=== PATIENT | male | born 2005 | race African-American/Black ===

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

== ENCOUNTER 2024-10-16 09:08 | Emergency (ER) | payer OTHER ==
[2024-10-16 09:30] VITALS: BP 111/69; PULSE 84; RESP 20; TEMP 98; BMI 45.4
[2024-10-16] MEDS ORDERED: IBUPROFEN 600 MG TABLET (FP) PO ONE (09:43)
[2024-10-16] MEDS ORDERED: ACETAMINOPHEN 500 MG TABLET (FP) PO ONE (09:43)
== END 2024-10-16 10:29 | disposition home or self-care (01) ==
LOC: JERFT 09:08
DX: M25.522 Pain in left elbow (principal); M25.422 Effusion, left elbow; Y00.XXXA Assault by blunt object, initial encounter
CPT/HCPCS: 73070-TC-LT-FY; 99283-25